=== PATIENT | male | born 1960 | race Caucasian/White ===

== ENCOUNTER 2016-12-19 20:53 | Observation (INO) | payer MEDICARE ==
[~2016-12-19] VITALS: Ht 182.9 cm; Wt 71.0 kg
[2016-12-19 20:58] VITALS: BP 139/71; PULSE 77; RESP 16; TEMP 98.6; O2SAT 99
--- NOTE | 2016-12-19 21:13 | PD ---
Physical Exam Date Seen by Provider: Dec 19, 2016 Time Seen by Provider: 21:11 Data Data Last Documented VS Vital Signs Date Time Temp Pulse Resp B/P (MAP) Pulse Ox O2 Delivery O2 Flow Rate FiO2 12/19/16 20:58 98.6 77 16 139/71 (93) 99 MDM Supervised Visit with MIRA: No Narrative Course 56 YO M with PMH of CAD s/p stenting with complaint of CP. Onset while walking ~1pm. Described as sharp and constant. Endorses accompanying SOB, diaphoreses, N/V. Vitals reviewed. EKG and CP workup ordered. Patient seen in triage, awaiting priority bed placement. Martina Soto Dec 19, 2016 21:13
[2016-12-19] MEDS ORDERED: ASPI81TA81 PO (21:24)
[2016-12-19] MEDS ORDERED: PRED1 PO (21:24)
[2016-12-19] MEDS ORDERED: METO50TA PO (21:24)
[2016-12-19] MEDS ORDERED: HYDR-3533 PO (21:24)
[2016-12-19] MEDS ORDERED: XANA1TAB2 PO (21:24)
[2016-12-19 21:26] VITALS: BP 125/77; PULSE 72; RESP 16; O2SAT 98
[2016-12-19] MEDS ORDERED: ASPIRIN 325 MG TAB PO ONE (21:30)
--- NOTE | 2016-12-19 21:37 | PD ---
HPI Chief Complaint: Chest Pain Time Seen by Provider: 21:28 Travel History International Travel<30 days: No Contact w/Intl Traveler<30days: No Traveled to known affect area: No History of Present Illness HPI 56- year old male presents to the ED complaining of chest pain that started around 1 pm this afternoon. He reports that the pain is under his ribs and dull and has sharp pain in the middle of his chest. He reports associated shortness of breath with the chest pain that is increased with activity and when speaking. He denies any radiation of the pain, but states he has nausea, vomiting, and diarrhea. He is also reporting a tunnel vision which concerns him because he has never had this before. He reports that the pain feels similar to a NH he had in 2013. He reports that he smokes and used cocaine 4 days ago, but denies any alcohol. He denies any recent long car rides or trips. 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 PFSH Past Medical History Anxiety: Yes Cardiac Catheterization: Yes Hypertension: Yes Tetanus Vaccination: Unknown Influenza Vaccination: No Social History Alcohol Use: No Tobacco Use: Yes (05/01 PPD) Substance Use: Yes (COCAINE) Allergies-Medications (Allergen,Severity, Reaction): Coded Allergies: Penicillins (Verified Allergy, Unknown, 12/19/16) Reported Meds & Prescriptions Reported Meds & Active Scripts Active Reported Lortab (Hydrocodone-Acetaminophen) 5-325 Mg Tab 1 Tab PO Q4H PRN Prednisone 1 Mg Tab Unknown Dose PO DAILY Xanax (Alprazolam) 1 Mg Tab 1 Mg PO Q8H PRN Aspir-81 (Aspirin) 81 Mg Tabdr Metoprolol Tartrate 50 Mg Tab 50 Mg PO BID Review of Systems General / Constitutional: No: Fever, Chills, Weight Gain, Weight Loss, Other Eyes: Positive: Visual changes, No: Diploplia, Blurred Vision, Photophobia, Drainage, Redness, Foreign Body Sensation, Pain, Tearing, Blind Spots, Blindness , Other HENT: No: Headaches, Vertigo, Lightheadedness, Sore Throat, Rhinitis, Rhinorrhea, Congestion, Nosebleed, Neck Stiffness, Neck Pain, Masses, Gingival Bleeding, Dental Difficulties, Ear Discharge, Earache, Other Cardiovascular: Positive: Chest Pain or Discomfort, No: Palpitations, Irregular Rhythm, Tachycardia, Diaphoresis, Syncope, Dyspnea on exertion, Varicosities, Edema, Cyanosis, Varicosities, Phlebitis, Claudication, Other Respiratory: Positive: Shortness of Breath, No: Cough, Wheezing, Sneezing, Orthopnea, Hemoptysis, Stridor, Night Sweats, Pleuritic Pain, Other Gastrointestinal: Positive: Nausea, Vomiting, Diarrhea, No: Abdominal Pain, Hematemesis, Hematochezia, Constipation, Changes in Bowel Habits, Indigestion, Dysphagia, Loss of Appetite, Other Genitourinary: No: Urgency, Frequency, Dysuria, Nocturia, Hematuria, Decreased Urinary Output, Oliguria, Hesitancy, Dribbling, Incontinence, Pelvic Pain, Flank Pain, Dyspareunia, Discharge, Dysmenorrhea, Menorrhagia, Metorrhagia, Vaginal Bleeding, Other Musculoskeletal: No: Myalgias, Arthralgias, Limited ROM, Weakness, Cramping, Edema, Pain, Atrophy, Other Skin: No Rash, No Itching, No Dryness, No Lumps, No Hives, No Change in Pigmentation, No Change in nails, No Alopecia, No Lesions, No Breast Lumps, No Breast Tenderness, No Breast Swelling, No Other Neurologic: No: Weakness, Dizziness, Syncope, Focal Abnormalities, Coordination Problem, Tremor, Ataxia, Headache, Change in Mentation, Slurred Speech, Paresthesia, Incontinence, Seizures, Sensory Disturbance, Other Psychiatric: No: Anxiety, Depression, Suicidal Ideations, Disorder of Thought, Mood Disorder, Substance Abuse, Homicidal Ideation, Other Endocrine: No: Heat Intolerance, Cold Intolerance, Polyuria, Polydipsia, Other Hematologic/Lymphatic: No: Easy Bruising, Lymph Node Enlargement, Other Physical Exam Narrative GENERAL: SKIN: Warm and dry. HEAD: Atraumatic. Normocephalic. EYES: Pupils equal and round. No scleral icterus. No injection or drainage. ENT: No nasal bleeding or discharge. Mucous membranes pink and moist. NECK: Trachea midline. No JVD. CARDIOVASCULAR: Regular rate and rhythm. No S3, S4, or murmurs. RESPIRATORY: No accessory muscle use. Clear to auscultation. Breath sounds equal bilaterally. No wheezes, rales, or rhonchi. GASTROINTESTINAL: Abdomen soft, non-tender, nondistended. Hepatic and splenic margins not palpable. MUSCULOSKELETAL: Extremities without clubbing, cyanosis, or edema. No obvious deformities. NEUROLOGICAL: Awake and alert. No obvious cranial nerve deficits. Motor grossly within normal limits. Five out of 5 muscle strength in the arms and legs. Normal speech. PSYCHIATRIC: Appropriate mood and affect; insight and judgment normal. Data Data Last Documented VS Vital Signs Date Time Temp Pulse Resp B/P (MAP) Pulse Ox O2 Delivery O2 Flow Rate FiO2 12/19/16 21:26 72 16 125/77 (93) 98 Room Air 12/19/16 20:58 98.6 Orders Orders Electrocardiogram (12/19/16 21:13) Ckmb (Isoenzyme) Profile (12/19/16 21:13) Complete Blood Count With Diff (12/19/16 21:13) Comprehensive Metabolic Panel (12/19/16 21:13) Magnesium (Mg) (12/19/16 21:13) Prothrombin Time / Inr (Pt) (12/19/16 21:13) Act Partial Throm Time (Ptt) (12/19/16 21:13) Troponin I (12/19/16 21:13) Chest, Single Ap (12/19/16 21:13) Lipase (12/19/16 21:27) Ecg Monitoring (12/19/16 21:29) Bilateral Bp Monitoring (12/19/16 21:29) Iv Access Insert/Monitor (12/19/16 21:29) Aspirin (Aspirin) (12/19/16 21:30) D-Dimer (12/19/16 21:40) Albuterol Neb (Albuterol Neb) (12/19/16 21:45) Ct Brain W/O Iv Contrast(Rout) (12/19/16 ) CKMB (12/19/16 21:08) CKMB% (12/19/16 21:08) Acetamin-Hydrocod 325-5 Mg ([place] 5-325 (12/19/16 22:15) Labs Laboratory Tests Test 12/19/16 21:08 White Blood Count 6.5 TH/MM3 Red Blood Count 3.97 MIL/MM3 Hemoglobin 12.3 GM/DL Hematocrit 36.7 % Mean Corpuscular Volume 92.2 FL Mean Corpuscular Hemoglobin 30.9 PG Mean Corpuscular Hemoglobin Concent 33.5 % Red Cell Distribution Width 14.5 % Platelet Count 199 TH/MM3 Mean Platelet Volume 9.0 FL Neutrophils (%) (Auto) 63.7 % Lymphocytes (%) (Auto) 25.5 % Monocytes (%) (Auto) 6.8 % Eosinophils (%) (Auto) 2.6 % Basophils (%) (Auto) 1.4 % Neutrophils # (Auto) 4.1 TH/MM3 Lymphocytes # (Auto) 1.7 TH/MM3 Monocytes # (Auto) 0.4 TH/MM3 Eosinophils # (Auto) 0.2 TH/MM3 Basophils # (Auto) 0.1 TH/MM3 CBC Comment DIFF FINAL Differential Comment Prothrombin Time 11.0 SEC Prothromb Time International Ratio 1.0 RATIO Activated Partial Thromboplast Time 30.4 SEC Blood Urea Nitrogen 11 MG/DL Creatinine 0.84 MG/DL Random Glucose 103 MG/DL Total Protein 7.0 GM/DL Albumin 3.6 GM/DL Calcium Level 8.9 MG/DL Magnesium Level 1.9 MG/DL Alkaline Phosphatase 69 U/L Aspartate Amino Transf (AST/SGOT) 22 U/L Alanine Aminotransferase (ALT/SGPT) 30 U/L Total Bilirubin 0.4 MG/DL Sodium Level 140 MEQ/L Potassium Level 3.4 MEQ/L Chloride Level 108 MEQ/L Carbon Dioxide Level 24.5 MEQ/L Anion Gap 8 MEQ/L Estimat Glomerular Filtration Rate 95 ML/MIN Total Creatine Kinase 218 U/L Creatine Kinase MB 5.0 NG/ML Troponin I LESS THAN 0.02 NG/ML Lipase 259 U/L MDM Medical Decision Making Medical Screen Exam Complete: Yes Emergency Medical Condition: Yes Medical Record Reviewed: Yes Interpretation(s) CBC & BMP Diagram 12/19/16 21:08 Total Protein 7.0, Albumin 3.6, Calcium Level 8.9, Magnesium Level 1.9, Alkaline Phosphatase 69, Aspartate Amino Transf (AST/SGOT) 22, Alanine Aminotransferase (ALT/SGPT) 30, Total Bilirubin 0.4 EKG shows sinus rhythm with no sign of acute ischemia or arrhythmia read by me and attending. troponin and CKMB negative CXR negative Coags WNL Differential Diagnosis NH versus GERD versus PE versus CHF versus Endocarditis Narrative Course 56-year-old male that presents to the ED for evaluation of chest pain. Patient was properly examined and was found to have signs and symptoms consistent appears to be chest pain. Unclear etiology of this time. Patient had a workup yesterday at a different hospital and was discharged with Lortab, tell her and prednisone. Per patient he is not taking his medications because he has no money until Sunday. He comes here to get a second opinion. He does have a history of ACS in per patient had an NH in 2013. Because of this labs and imaging will be ordered. Patient was given aspirin. Case will be signed out to my attending pending dispo pending labs. Anthony Mc Dec 19, 2016 21:37
[2016-12-19 21:38] LABS: AUTOMATED NEUTROPHIL # 4.1 TH/MM3 (1.8-7.7); BASOPHIL # 0.1 TH/MM3 (0-0.2); BASOPHIL % 1.4 % (0.0-2.0); EOSINOPHIL # 0.2 TH/MM3 (0-0.4); EOSINOPHIL % 2.6 % (0.0-4.0); HEMATOCRIT 36.7 % (39.0-51.0); HEMO FLAGS DIFF FINAL; LYMPH % 25.5 % (9.0-44.0); LYMPHOCYTE # 1.7 TH/MM3 (1.0-4.8); MEAN CELL VOLUME 92.2 FL (80.0-100.0); MEAN CORPUSCULAR HEMOGLOBIN 30.9 PG (27.0-34.0); MEAN CORPUSCULAR HGB CONC 33.5 % (32.0-36.0); MONO % 6.8 % (0.0-8.0); NEUT % 63.7 % (16.0-70.0); PLATELET COUNT 199 TH/MM3 (150-450); RED BLOOD COUNT 3.97 MIL/MM3 (4.50-5.90); RED CELL DISTRIBUTION WIDTH 14.5 % (11.6-17.2); WHITE BLOOD COUNT 6.5 TH/MM3 (4.0-11.0)
[2016-12-19] MEDS ORDERED: RESP: ALBUTEROL 2.5 MG/3 ML NEB (SCH) INH ONE (21:45)
[2016-12-19 21:57] LABS: ANION GAP 8 MEQ/L (5-15); AST (GOT) 22 U/L (15-37); BICARBONATE 24.5 MEQ/L (21.0-32.0); BLOOD UREA NITROGEN 11 MG/DL (7-18); CHLORIDE 108 MEQ/L (98-107); GLOMERULAR FILTRATION RATE 95 ML/MIN (>89); MAGNESIUM 1.9 MG/DL (1.5-2.5); POTASSIUM 3.4 MEQ/L (3.5-5.1); SODIUM (NA) 140 MEQ/L (136-145)
[2016-12-19 21:58] LABS: ALT (GPT) 30 U/L (12-78)
[2016-12-19 22:02] LABS: ALKALINE PHOSPHATASE 69 U/L (45-117); CREATINE KINASE 218 U/L (39-308); TOTAL BILIRUBIN ADULT 0.4 MG/DL (0.2-1.0)
[2016-12-19 22:04] LABS: APTT (PATIENT) 30.4 SEC (24.3-30.1)
--- NOTE | 2016-12-19 22:11 | RADRPT ---
EXAM DATE/TIME: 12/19/2016 21:49 [facility] COMPARISON: No previous studies available for comparison. INDICATIONS : Chest pain. MEDICAL HISTORY : Hypertension. SURGICAL HISTORY : Cardiac catheterization. ENCOUNTER: Initial ACUITY: 1 day PAIN SCORE: 10/10 LOCATION: Bilateral chest FINDINGS: Portable AP view of the chest demonstrates a normal-sized cardiac silhouette. No effusion, consolidat ion, or pneumothorax is visualized. The bones and soft tissues demonstrate no acute abnormality. Ther e is mild atelectasis at the lung bases. CONCLUSION: No acute cardiopulmonary abnormality is identified. Wang Feliciano MD on December 19, 2016 at 22:09 Board Certified Radiologist. This report was verified electronically.
[2016-12-19] MEDS ORDERED: ACETAMINOPHEN/HYDROcodone 325 MG/5 MG TAB PO ONE (22:15)
--- NOTE | 2016-12-19 22:50 | RADRPT ---
EXAM DATE/TIME: 12/19/2016 22:09 [facility] COMPARISON: No previous studies available for comparison. INDICATIONS : Cephalgia. RADIATION DOSE: 32.16 CTDIvol (mGy) MEDICAL HISTORY : Hypertension. SURGICAL HISTORY : None. ENCOUNTER: Initial ACUITY: 1 day PAIN SCALE: 8/10 LOCATION: cranial TECHNIQUE: Multiple contiguous axial images were obtained of the head. Using automated exposure control and adj ustment of the mA and/or kV according to patient size, radiation dose was kept as low as reasonably a chievable to obtain optimal diagnostic quality images. DICOM format image data is available electro nically for review and comparison. FINDINGS: CEREBRUM: The ventricles are normal for age. No evidence of midline shift, mass lesion, hemorrhage or acute in farction. No extra-axial fluid collections are seen. POSTERIOR FOSSA: The cerebellum and brainstem are intact. The 4th ventricle is midline. The cerebellopontine angle i s unremarkable. EXTRACRANIAL: The visualized portion of the orbits is intact. SKULL: The calvaria is intact. No evidence of skull fracture. CONCLUSION: No acute intracranial abnormality is identified. Wang Feliciano MD on December 19, 2016 at 22:45 Board Certified Radiologist. This report was verified electronically.
--- NOTE | 2016-12-19 23:22 | PD ---
Physical Exam Date Seen by Provider: Dec 19, 2016 Data Data Last Documented VS Vital Signs Date Time Temp Pulse Resp B/P (MAP) Pulse Ox O2 Delivery O2 Flow Rate FiO2 12/19/16 21:26 72 16 125/77 (93) 98 Room Air 12/19/16 20:58 98.6 Orders Orders Electrocardiogram (12/19/16 21:13) Ckmb (Isoenzyme) Profile (12/19/16 21:13) Complete Blood Count With Diff (12/19/16 21:13) Comprehensive Metabolic Panel (12/19/16 21:13) Magnesium (Mg) (12/19/16 21:13) Prothrombin Time / Inr (Pt) (12/19/16 21:13) Act Partial Throm Time (Ptt) (12/19/16 21:13) Troponin I (12/19/16 21:13) Chest, Single Ap (12/19/16 21:13) Lipase (12/19/16 21:27) Ecg Monitoring (12/19/16 21:29) Bilateral Bp Monitoring (12/19/16 21:29) Iv Access Insert/Monitor (12/19/16 21:29) Aspirin (Aspirin) (12/19/16 21:30) D-Dimer (12/19/16 21:40) Albuterol Neb (Albuterol Neb) (12/19/16 21:45) Ct Brain W/O Iv Contrast(Rout) (12/19/16 ) CKMB (12/19/16 21:08) CKMB% (12/19/16 21:08) Acetamin-Hydrocod 325-5 Mg (Model 5-325 (12/19/16 22:15) Drug Screen, Random Urine (12/19/16 22:56) Labs Laboratory Tests Test 12/19/16 21:08 White Blood Count 6.5 TH/MM3 Red Blood Count 3.97 MIL/MM3 Hemoglobin 12.3 GM/DL Hematocrit 36.7 % Mean Corpuscular Volume 92.2 FL Mean Corpuscular Hemoglobin 30.9 PG Mean Corpuscular Hemoglobin Concent 33.5 % Red Cell Distribution Width 14.5 % Platelet Count 199 TH/MM3 Mean Platelet Volume 9.0 FL Neutrophils (%) (Auto) 63.7 % Lymphocytes (%) (Auto) 25.5 % Monocytes (%) (Auto) 6.8 % Eosinophils (%) (Auto) 2.6 % Basophils (%) (Auto) 1.4 % Neutrophils # (Auto) 4.1 TH/MM3 Lymphocytes # (Auto) 1.7 TH/MM3 Monocytes # (Auto) 0.4 TH/MM3 Eosinophils # (Auto) 0.2 TH/MM3 Basophils # (Auto) 0.1 TH/MM3 CBC Comment DIFF FINAL Differential Comment Prothrombin Time 11.0 SEC Prothromb Time International Ratio 1.0 RATIO Activated Partial Thromboplast Time 30.4 SEC D-Dimer Quantitative (PE/DVT) 0.24 MG/L FEU Blood Urea Nitrogen 11 MG/DL Creatinine 0.84 MG/DL Random Glucose 103 MG/DL Total Protein 7.0 GM/DL Albumin 3.6 GM/DL Calcium Level 8.9 MG/DL Magnesium Level 1.9 MG/DL Alkaline Phosphatase 69 U/L Aspartate Amino Transf (AST/SGOT) 22 U/L Alanine Aminotransferase (ALT/SGPT) 30 U/L Total Bilirubin 0.4 MG/DL Sodium Level 140 MEQ/L Potassium Level 3.4 MEQ/L Chloride Level 108 MEQ/L Carbon Dioxide Level 24.5 MEQ/L Anion Gap 8 MEQ/L Estimat Glomerular Filtration Rate 95 ML/MIN Total Creatine Kinase 218 U/L Creatine Kinase MB 5.0 NG/ML Troponin I LESS THAN 0.02 NG/ML Lipase 259 U/L [facility] Medical Record Reviewed: Yes Supervised Visit with MIRA: Yes Interpretation(s) Vital Signs Date Time Temp Pulse Resp B/P (MAP) Pulse Ox O2 Delivery O2 Flow Rate FiO2 12/19/16 21:26 72 16 125/77 (93) 98 Room Air 12/19/16 21:24 76 12/19/16 20:58 98.6 77 16 139/71 (93) 99 Laboratory Tests Test 12/19/16 21:08 White Blood Count 6.5 TH/MM3 (4.0-11.0) Red Blood Count 3.97 MIL/MM3 (4.50-5.90) Hemoglobin 12.3 GM/DL (13.0-17.0) Hematocrit 36.7 % (39.0-51.0) Mean Corpuscular Volume 92.2 FL (80.0-100.0) Mean Corpuscular Hemoglobin 30.9 PG (27.0-34.0) Mean Corpuscular Hemoglobin Concent 33.5 % (32.0-36.0) Red Cell Distribution Width 14.5 % (11.6-17.2) Platelet Count 199 TH/MM3 (150-450) Mean Platelet Volume 9.0 FL (7.0-11.0) Neutrophils (%) (Auto) 63.7 % (16.0-70.0) Lymphocytes (%) (Auto) 25.5 % (9.0-44.0) Monocytes (%) (Auto) 6.8 % (0.0-8.0) Eosinophils (%) (Auto) 2.6 % (0.0-4.0) Basophils (%) (Auto) 1.4 % (0.0-2.0) Neutrophils # (Auto) 4.1 TH/MM3 (1.8-7.7) Lymphocytes # (Auto) 1.7 TH/MM3 (1.0-4.8) Monocytes # (Auto) 0.4 TH/MM3 (0-0.9) Eosinophils # (Auto) 0.2 TH/MM3 (0-0.4) Basophils # (Auto) 0.1 TH/MM3 (0-0.2) CBC Comment DIFF FINAL Differential Comment Prothrombin Time 11.0 SEC (9.8-11.6) Prothromb Time International Ratio 1.0 RATIO Activated Partial Thromboplast Time 30.4 SEC (24.3-30.1) D-Dimer Quantitative (PE/DVT) 0.24 MG/L FEU (0.00-0.50) Blood Urea Nitrogen 11 MG/DL (7-18) Creatinine 0.84 MG/DL (0.60-1.30) Random Glucose 103 MG/DL (74-106) Total Protein 7.0 GM/DL (6.4-8.2) Albumin 3.6 GM/DL (3.4-5.0) Calcium Level 8.9 MG/DL (8.5-10.1) Magnesium Level 1.9 MG/DL (1.5-2.5) Alkaline Phosphatase 69 U/L (45-117) Aspartate Amino Transf (AST/SGOT) 22 U/L (15-37) Alanine Aminotransferase (ALT/SGPT) 30 U/L (12-78) Total Bilirubin 0.4 MG/DL (0.2-1.0) Sodium Level 140 MEQ/L (136-145) Potassium Level 3.4 MEQ/L (3.5-5.1) Chloride Level 108 MEQ/L (98-107) Carbon Dioxide Level 24.5 MEQ/L (21.0-32.0) Anion Gap 8 MEQ/L (5-15) Estimat Glomerular Filtration Rate 95 ML/MIN (>89) Total Creatine Kinase 218 U/L (39-308) Creatine Kinase MB 5.0 NG/ML (0.5-3.6) Troponin I LESS THAN 0.02 NG/ML Lipase 259 U/L (73-393) Differential Diagnosis drug abuse, acs, arrhythmia, electrolyte abnormality Narrative Course I, Dr. Patel, have reviewed the advance practice practitioner's documentation and am in agreement, met with the patient face to face, made the diagnosis, and the medical decision making was done by me. *My assessment and Findings: Patient is a 56 year old male who presents to the ER wtih c/o of chest pain which started around 1pm this afternoon. Patient's pain is under his ribs and is so she was sharp pain to the middle chest admission to shortness of breath. Patient endorses that he does use drugs, he used cocaine 4 days ago. Patient reports that he has had history of hypertension and OK in the past. CBC & BMP Diagram 12/19/16 21:08 Total Protein 7.0, Albumin 3.6, Calcium Level 8.9, Magnesium Level 1.9, Alkaline Phosphatase 69, Aspartate Amino Transf (AST/SGOT) 22, Alanine Aminotransferase (ALT/SGPT) 30, Total Bilirubin 0.4 Troponin less than 0.02, CK-MB 5.0 D dimer 0.24 chest xray: no acute cardiopulmonary abnormality identified Plan to obs in the CDU. Diagnosis Primary Impression: Chest pain Additional Impression: Cocaine abuse Admitting Information Admitting Physician Requests: Observation Rosamaria Patel DO Dec 19, 2016 23:22
[2016-12-20] VITALS (8 sets, daily range): BP systolic 112–132; BP diastolic 59–76; PULSE 47–84; RESP 16–18; TEMP 97.9–98.1; O2SAT 96–98
[2016-12-20 01:49] LABS: CREATINE KINASE 190 U/L (39-308)
[2016-12-20 02:02] LABS: CKMB 3.7 NG/ML (0.5-3.6)
[2016-12-20 04:35] LABS: CREATINE KINASE 162 U/L (39-308)
[2016-12-20 04:47] LABS: CKMB 3.4 NG/ML (0.5-3.6)
[2016-12-20] MEDS ORDERED: LORazepam 1 MG TAB PO ONE (08:15)
--- NOTE | 2016-12-20 08:29 | HHI.HP ---
HPI Primary Care Physician No Primary Care Physician Chief Complaint Chest pain History of Present Illness 56-year-old male with reported history of coronary artery disease presents to emergency room for further evaluation of chest pain. Onset 1 PM yesterday. Location substernal. Characterized as a sharp pain. No radiation of pain. Associated symptoms included shortness of breath. No nausea, vomiting, or diaphoresis. Duration constant. Does not hurt to take a deep breath. No particular movement or position makes pain better or worse. Precipitating factors unknown although states he out of his anxiety medication and is currently having a panic attack. No known precipitating factors. Difficult to obtain history of present illness. Exhibiting drug seeking behaviors, with conversation always returning to need for lorazepam. Angry during interview. Cursing and yelling. At one point during interview, stated "if I don't get some kind of pain relief I will go out an get street drugs." Reports normal chemical stress test one month in [place]. Endorses using cocaine 4 days ago. Review of Systems General: No fatigue,weakness, fever, chills, recent illness, or change in appetite. Reports recently returning to [facility]. HEENT: No FIORE CV: As stated above. Constant chest pain for over 24 hours. RESP: No SOB, cough, or wheeze. GI: No nausea, vomiting, bowel changes. 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 Current situational stress. No depression or suicidal ideation. SKIN: No rashes, no concerning lesions Past Family Social History Allergies: Coded Allergies: Penicillins (Verified Allergy, Unknown, 12/19/16) Past Medical History CAD, chronic pain, anxiety, hypertension, substance abuse Reported Medications Active Reported Lortab (Hydrocodone-Acetaminophen) 5-325 Mg Tab 1 Tab PO Q4H PRN Prednisone 1 Mg Tab Unknown Dose PO DAILY Xanax (Alprazolam) 1 Mg Tab 1 Mg PO Q8H PRN Aspir-81 (Aspirin) 81 Mg Tabdr Metoprolol Tartrate 50 Mg Tab 50 Mg PO BID Active Ordered Medications None Social History Known CAD with reports x1 cardiac stent. Known hypertension. No known diabetes. Is on appropriate cholesterol management with known CAD. Current smoke 1/2 pack/daily. Denies any alcohol use. Cocaine use 4 days ago. Disabled -states he does not use [place] system for healthcare. Past Cardiac Testing Chemical stress test in [place] one month ago reported to be normal Reports 1 cardiac stent 2013 in [place]. Physical Exam Vital Signs Vital Signs Date Time Temp Pulse Resp B/P (MAP) Pulse Ox O2 Delivery O2 Flow Rate FiO2 12/20/16 08:04 21 12/20/16 07:13 98.0 59 18 118/76 (90) 97 12/20/16 05:24 97.9 56 16 113/59 (77) 96 12/20/16 04:01 60 12/20/16 02:35 48 12/20/16 02:26 98.0 60 16 112/67 (82) 98 12/20/16 02:14 12/20/16 01:24 98 21 12/20/16 00:45 84 16 132/75 (94) 98 Room Air 12/19/16 21:26 72 16 125/77 (93) 98 Room Air 12/19/16 21:24 76 12/19/16 20:58 98.6 77 16 139/71 (93) 99 Physical Exam GENERAL: Alert WN, WD, NAD, hostile male HEAD: NC, AT CV: RRR, without murmur, rub, gallop, no JVD, S1-S2 no S3-S4. Chest wall reproducible tenderness with palpation. RESP: Clear lungs throughout bilateral, no crackles, wheeze, rhonchi, symmetrical chest rise, nonlabored, able to speak in full sentences ABD: Soft, NT, ND, no masses EXT: Pulses +24, no dependent edema MS: Normal tone 4 extremities, nontender, no obvious deformities, full range of motion NEURO: CN II through CN XII grossly intact, motor strength 5/5, gait WNL PSYCH: A+O 3, hostile, yelling, and argumentative. SKIN: Normal turgor, normal texture, multiple tattoos Laboratory Laboratory Tests Test 12/19/16 21:08 12/20/16 00:55 12/20/16 03:45 White Blood Count 6.5 Red Blood Count 3.97 Hemoglobin 12.3 Hematocrit 36.7 Mean Corpuscular Volume 92.2 Mean Corpuscular Hemoglobin 30.9 Mean Corpuscular Hemoglobin Concent 33.5 Red Cell Distribution Width 14.5 Platelet Count 199 Mean Platelet Volume 9.0 Neutrophils (%) (Auto) 63.7 Lymphocytes (%) (Auto) 25.5 Monocytes (%) (Auto) 6.8 Eosinophils (%) (Auto) 2.6 Basophils (%) (Auto) 1.4 Neutrophils # (Auto) 4.1 Lymphocytes # (Auto) 1.7 Monocytes # (Auto) 0.4 Eosinophils # (Auto) 0.2 Basophils # (Auto) 0.1 CBC Comment DIFF FINAL Differential Comment Prothrombin Time 11.0 Prothromb Time International Ratio 1.0 Activated Partial Thromboplast Time 30.4 D-Dimer Quantitative (PE/DVT) 0.24 Blood Urea Nitrogen 11 Creatinine 0.84 Random Glucose 103 Total Protein 7.0 Albumin 3.6 Calcium Level 8.9 Magnesium Level 1.9 Alkaline Phosphatase 69 Aspartate Amino Transf (AST/SGOT) 22 Alanine Aminotransferase (ALT/SGPT) 30 Total Bilirubin 0.4 Sodium Level 140 Potassium Level 3.4 Chloride Level 108 Carbon Dioxide Level 24.5 Anion Gap 8 Estimat Glomerular Filtration Rate 95 Total Creatine Kinase 218 190 162 Creatine Kinase MB 5.0 3.7 3.4 Troponin I LESS THAN 0.02 LESS THAN 0.02 LESS THAN 0.02 Lipase 259 Result Diagram: 12/19/16210712/19/162107 Imaging Last Impressions Chest X-Ray 12/19/162112 Signed Impressions: Service Date/Time: Monday, December 19, 2016 21:49 - CONCLUSION: No acute cardiopulmonary abnormality is identified. Wang Feliciano MD Head CT 12/19/16 0000 Signed Impressions: Service Date/Time: Monday, December 19, 2016 22:09 - CONCLUSION: No acute intracranial abnormality is identified. Wang Feliciano MD Course EKG Normal sinus bradycardia, normal axis, no ST or T-segment change Caprini VTE Risk Assessment Caprini VTE Risk Assessment: No/Low Risk (score <= 1) Caprini Risk Assessment Model Point Value = 1 Point Value = 2 Point Value = 3 Point Value = 5 Age 41-60 Minor surgery BMI > 25 kg/m2 Swollen legs Varicose veins or History of unexplained or recurrent spontaneous Oral contraceptives or hormone replacement Sepsis (< 1 month) Serious lung disease, including pneumonia (< 1 month) Abnormal pulmonary function Acute myocardial infarction Congestive heart failure (< 1 month) History of inflammatory bowel disease Medical patient at bed rest Age 61-74 Arthroscopic surgery Major open surgery (> 45 min) Laparoscopic surgery (> 45 min) Malignancy Confined to bed (> 72 hours) Immobilizing plaster cast Central venous access Age >= 75 History of VTE Family history of VTE Factor V Leiden Prothrombin [id number] Lupus anticoagulant Anticardiolipin antibodies Elevated serum homocysteine Heparin-induced thrombocytopenia Other congenital or acquired thrombophilia Stroke (< 1 month) Elective arthroplasty Hip, pelvis, or leg fracture Acute spinal cord injury (< 1 month) Prophylaxis Regimen Total Risk Factor Score Risk Level Prophylaxis Regimen 0-1 Low Early ambulation 2 Moderate Order ONE of the following: *Sequential Compression Device (SCD) *Heparin 5000 units SQ BID 3-4 Higher Order ONE of the following medications: *Heparin 5000 units SQ TID *Enoxaparin/Lovenox 40 mg SQ daily (WT < 150 kg, CrCl > 30 mL/min) *Enoxaparin/Lovenox 30 mg SQ daily (WT < 150 kg, CrCl > 10-29 mL/min) *Enoxaparin/Lovenox 30 mg SQ BID (WT < 150 kg, CrCl > 30 mL/min) AND/OR *Sequential Compression Device (SCD) 5 or more Highest Order ONE of the following medications: *Heparin 5000 units SQ TID (Preferred with Epidurals) *Enoxaparin/Lovenox 40 mg SQ daily (WT < 150 kg, CrCl > 30 mL/min) *Enoxaparin/Lovenox 30 mg SQ daily (WT < 150 kg, CrCl > 10-29 mL/min) *Enoxaparin/Lovenox 30 mg SQ BID (WT < 150 kg, CrCl > 30 mL/min) AND *Sequential Compression Device (SCD) Assessment and Plan Assessment and Plan #1 Atypical chest pain- Admitted to chest pain center. Seen and evaluated by Dr. Jyoti Carreno. Ruled out with 3 sets of EKGs and cardiac enzymes. Reporting intractable chest pain with recent normal stress test one month ago. Consult to on-call surgical coder for further recommendation. #2 Anxiety-Lorazepam 1 mg by mouth 1 dose #3 Tobacco use-strongly encouraged and stressed the importance of tobacco sensation. Instructed to quit smoking. #4 Cocaine use-informed of risk of cocaine use including risk of [place] and even . Strongly encouraged him to quit using cocaine. #5 History of CAD-continue beta dimas and aspirin, reestablish with a surgical coder in area, encouraged establishing with a medical system #6 Chronic pain-pain medication provided in ER, stating he needs Suboxone although requesting pain medication prescription, informed him we will not provide him with his chronic pain medications. Continue with previous prescription, reestablish with pain clinic and/or local PCP, 12:[address] Huddleston. No further cardiac testing required. Diet ordered. Will discharge this afternoon. Appreciate cardiology consult. Brooke Oakes Dec 20, 2016 08:29
[2016-12-20] MEDS ORDERED: ACETAMINOPHEN 500 MG CPLT PO PRN (08:30)
[2016-12-20] MEDS ORDERED: SODIUM CHLORIDE 0.9% FLUSH 10 ML FLUSH IV FLUSH PRN (08:30)
[2016-12-20] MEDS ORDERED: ONDANSETRON HCL 4 MG/2 ML VIAL IV PRN (08:30)
[2016-12-20] MEDS ORDERED: NITROGLYCERIN 0.4 MG SL 25 TABS/BTL SL PRN (08:30)
[2016-12-20] MEDS ORDERED: SODIUM CHLORIDE 0.9% FLUSH 10 ML FLUSH IV FLUSH SCH (09:00)
[2016-12-20] MEDS ORDERED: ASPIRIN 325 MG TAB PO SCH (09:00)
[2016-12-20] MEDS ORDERED: METOPROLOL TARTRATE 50 MG TAB PO SCH (09:00)
--- NOTE | 2016-12-20 12:18 | MB ---
cc: LISA LEMUS M.D. DATE OF CONSULTATION 12/20/2016 REASON FOR CONSULTATION Chest pain. History of coronary artery disease. HISTORY OF PRESENT ILLNESS The patient is a 56-year-old white male with a history of coronary artery disease apparently status post stenting in 2013 in [place], history of tobacco and cocaine abuse, who presented to the hospital with chest pain. At about 01:00 p.m. yesterday he began experiencing a "sharp" and "dull" substernal chest pain associated with slight nausea. The chest pain was constant in nature up until this morning when it relieved for about 1/2 hour. After becoming upset, the chest pain recurred and has been persistent in a constant fashion for the last 3 or 4 hours. He denies diaphoresis, pleurisy, palpitations, lightheadedness, paroxysmal nocturnal dyspnea, pedal edema. Yesterday while walking in the heat he believes he lost consciousness for a brief time. When he regained consciousness, he was not disoriented. He denies any other episodes of syncope. The patient also reports a nuclear stress test done in [facility] about a month ago which was normal. In the last couple weeks he has had an overall nonproductive cough without hemoptysis. PAST MEDICAL HISTORY As above. No other details currently available. CARDIAC MEDICATIONS AT HOME 1. Aspirin 81 mg daily. 2. Metoprolol tartrate 50 mg b.i.d. ALLERGIES PENICILLIN. FAMILY HISTORY There is no significant family history of early myocardial infarction. SOCIAL HISTORY The patient smokes about half a pack of cigarettes per day. He last used cocaine about 4 days ago. He denies alcohol abuse. REVIEW OF SYSTEMS As in the History of Present Illness, otherwise negative or noncontributory. He also currently denies headache, visual changes, abdominal pain, melena, bright red blood per rectum. PHYSICAL EXAMINATION VITAL SIGNS: His is blood pressure 112/67 with a pulse of 47, respirations 16. IN GENERAL: He is a well-developed, well-nourished white male in no acute distress. HEENT/NECK EXAMINATION: Jugular venous pressure is normal. Carotid pulses are 2+ bilaterally and without bruits. LUNGS: Examination of the chest reveals diminished breath sounds diffusely. CARDIAC: On cardiac examination he has a regular rhythm and rate without S3, S4, murmur or rub. CHEST: There is chest wall tenderness on exam reproducing his pains. ABDOMEN: On abdominal examination he has a soft, nontender abdomen. Bowel sounds are present. There is no definite hepatosplenomegaly. EXTREMITIES: Examination of extremities reveals no clubbing, cyanosis or edema. EKGs Normal sinus rhythm, normal EKG. LABORATORY DATA WBC 6.5, hemoglobin 12.3, platelets 199, potassium 3.4. CK 218 with CK-MB of 5.0, troponin less than 0.02. Potassium 3.4, BUN 11, creatinine 0.84. CHEST X-RAY No acute disease. IMPRESSION Noncardiac chest pain in this 56-year-old white male with a history of coronary artery disease, reportedly status post stenting in 2013 in [place], history of cocaine and tobacco abuse. At this time there is no compelling evidence that the patient's chest pains are due to acute coronary syndrome. Despite chest pain most of the last 24 hours, troponin levels are negative for myocardial infarction. CK-MB percentages are negative for myocardial infarction. EKGs are normal. He also has chest wall tenderness on exam which reproduces his chest pains. Lastly, he reportedly had a nuclear stress test a month ago in [place] which was normal. Clinical suspicion for pulmonary embolism or aortic dissection is extremely low. There is no evidence he has coronary vasospasm from cocaine abuse. RECOMMENDATIONS 1. No additional cardiac workup at this time. 2. He is cleared for discharge from a cardiac standpoint. MD BLANCO Locke/MANOJ /11:50 AM /12:04 PM EMILY
--- NOTE | 2016-12-20 12:19 | HHI.DCPOC ---
Discharge Care Plan Diagnosis: (1) Atypical chest pain (2) Cocaine abuse Goals to Promote Your Health * To prevent worsening of your condition and complications * To maintain your health at the optimal level Directions to Meet Your Goals Take your medications as prescribed Follow your dietary instruction Follow activity as directed Keep your appointments as scheduled Take your immunizations and boosters as scheduled If your symptoms worsen call your PCP, if no PCP go to Urgent Care Center or Emergency Room Smoking is Dangerous to Your Health. Avoid second hand smoke Call the 24-hour hour crisis hotline for domestic abuse at Brooke Oakes Dec 20, 2016 12:19
--- NOTE | 2016-12-20 17:48 | EKG ---
Date Performed: 12/20/2016 Time Performed: 03:40:58 PTAGE: 56 years EKG: SINUS BRADYCARDIA BORDERLINE ECG Since PREVIOUS TRACING , no significant change noted PREVIOUS TRACIN12/20/2016 01.10 DOCTOR: Jyoti Carreno Interpretating Date/Time 12/20/2016 17:46:19
--- NOTE | 2016-12-20 17:49 | EKG ---
Date Performed: 12/20/2016 Time Performed: 01:10:31 PTAGE: 56 years EKG: SINUS BRADYCARDIA WITH MARKED SINUS ARRHYTHMIA BORDERLINE ECG Since previous tracing, no si gnificant change noted NO PREVIOUS TRACING DOCTOR: Jyoti Carreno Interpretating Date/Time 12/20/2016 17:47:40
--- NOTE | 2016-12-20 17:50 | EKG ---
Date Performed: 12/19/2016 Time Performed: 21:01:22 PTAGE: 56 years EKG: Sinus rhythm NORMAL ECG NO PREVIOUS TRACING DOCTOR: Jyoti Carreno Interpretating Date/Time 12/20/2016 17:48:16
== END 2016-12-20 14:02 | disposition home or self-care (01) ==
LOC: NEPC 20:53 → NEDA 23:25 → NEPFCDU 12-20 02:19
PROVIDERS: ADMIT Internal Medicine Interventional Cardiology; ATTEND Internal Medicine Interventional Cardiology
DX: R07.89 Other chest pain (principal); I25.10 Atherosclerotic heart disease of native coronary artery without angina pectoris; I10 Essential (primary) hypertension; F41.9 Anxiety disorder, unspecified; F14.10 Cocaine abuse, uncomplicated; F17.210 Nicotine dependence, cigarettes, uncomplicated; Z95.5 Presence of coronary angioplasty implant and graft
CPT/HCPCS: 70450; 71010; 80053; 82550; 82552; 83690; 83735; 84484; 85025; 85379; 85610; 85730; 93005; 94664; 99285; G0378; J7613

== ENCOUNTER 2016-12-26 17:11 | Emergency (ER) | payer MEDICARE ==
[~2016-12-26] VITALS: Ht 180.3 cm; Wt 75.0 kg
[~2016-12-26 17:11] MED LIST: ASPI81TA81 PO; HYDR-3533 PO; METO50TA PO; PRED1 PO; XANA1TAB2 PO
[2016-12-26 18:29] VITALS: BP 131/60; PULSE 74; RESP 21; O2SAT 100
[2016-12-26 18:37] LABS: AUTOMATED NEUTROPHIL # 5.2 TH/MM3 (1.8-7.7); BASOPHIL % 0.6 % (0.0-2.0); EOSINOPHIL # 0.1 TH/MM3 (0-0.4); EOSINOPHIL % 1.5 % (0.0-4.0); HEMATOCRIT 35.9 % (39.0-51.0); HEMO FLAGS DIFF FINAL; LYMPH % 16.7 % (9.0-44.0); LYMPHOCYTE # 1.2 TH/MM3 (1.0-4.8); MEAN CORPUSCULAR HEMOGLOBIN 30.3 PG (27.0-34.0); MEAN CORPUSCULAR HGB CONC 33.3 % (32.0-36.0); MONO % 7.6 % (0.0-8.0); NEUT % 73.6 % (16.0-70.0); PLATELET COUNT 199 TH/MM3 (150-450); RED BLOOD COUNT 3.95 MIL/MM3 (4.50-5.90); RED CELL DISTRIBUTION WIDTH 14.9 % (11.6-17.2)
[2016-12-26 19:01] LABS: ALKALINE PHOSPHATASE 65 U/L (45-117); ALT (GPT) 46 U/L (12-78); ANION GAP 7 MEQ/L (5-15); AST (GOT) 63 U/L (15-37); BICARBONATE 26.8 MEQ/L (21.0-32.0); BLOOD UREA NITROGEN 9 MG/DL (7-18); CHLORIDE 102 MEQ/L (98-107); GLOMERULAR FILTRATION RATE 101 ML/MIN (>89); SODIUM (NA) 136 MEQ/L (136-145); TOTAL BILIRUBIN ADULT 0.7 MG/DL (0.2-1.0)
--- NOTE | 2016-12-26 19:06 | PD ---
HPI Chief Complaint: Psychiatric Symptoms Time Seen by Provider: 19:05 Travel History International Travel<30 days: No Contact w/Intl Traveler<30days: No Traveled to known affect area: No History of Present Illness HPI 56 YO M presents to the ED for evaluation of chest pain. He states "I don't feel good." He requests voluntary psychiatric evaluation. The patient is sleeping upon my evaluation. He wakes easily to voice. He becomes very agitated and is uncooperative with the history gathering or exam. PFSH Past Medical History Anxiety: Yes Heart Rhythm Problems: No Cardiac Catheterization: No Cardiovascular Problems: Yes High Cholesterol: No Congestive Heart Failure: No Diabetes: No Diminished Hearing: No Hypertension: Yes Influenza Vaccination: No Past Surgical History Coronary Artery Bypass Graft: No Social History Alcohol Use: No Tobacco Use: Yes (1-05/01 PPD) Substance Use: Yes (COCAINE 12/02/16) Allergies-Medications (Allergen,Severity, Reaction): Coded Allergies: Penicillins (Verified Allergy, Intermediate, HIVES, 12/27/16) Reported Meds & Prescriptions Reported Meds & Active Scripts Active Reported Xanax (Alprazolam) 1 Mg Tab 1 Mg PO Q8H PRN Aspir-81 (Aspirin) 81 Mg Tabdr 81 Mg PO DAILY Metoprolol Tartrate 50 Mg Tab 50 Mg PO BID Review of Systems Except as stated in HPI: all other systems reviewed are Neg Physical Exam Narrative GENERAL: Well-nourished, well-developed, nontoxic appearing white male in NAD. PSYCHIATRIC: No delusional thought processes. No hallucinations. Belligerent, argumentative, uncooperative. SKIN: Focused skin assessment warm/dry. HEAD: Normocephalic. EYES: No scleral icterus. No injection or drainage. NECK: Supple, trachea midline. No JVD. CARDIOVASCULAR: Regular rate and rhythm without murmurs, gallops, or rubs. RESPIRATORY: Breath sounds clear and equal bilaterally. No accessory muscle use. GASTROINTESTINAL: Abdomen soft, non-tender, nondistended. Active bowel sounds MUSCULOSKELETAL: No cyanosis, or edema. Moves easily from lying down to sitting up. BACK: No obvious deformity. Data Data Last Documented VS Vital Signs Date Time Temp Pulse Resp B/P (MAP) Pulse Ox O2 Delivery O2 Flow Rate FiO2 12/27/16 09:40 97.9 78 17 118/85 (96) 99 12/27/16 07:05 Room Air Orders Orders Complete Blood Count With Diff (12/26/16 17:51) Comprehensive Metabolic Panel (12/26/16 17:51) Urinalysis - C+S If Indicated (12/26/16 17:51) Drug Screen, Random Urine (12/26/16 17:51) Potassium Chloride (Kcl) (12/26/16 19:30) Psych Screen (12/27/16 00:56) Labs Laboratory Tests Test 12/26/16 18:09 12/26/16 21:55 White Blood Count 7.0 TH/MM3 Red Blood Count 3.95 MIL/MM3 Hemoglobin 12.0 GM/DL Hematocrit 35.9 % Mean Corpuscular Volume 91.0 FL Mean Corpuscular Hemoglobin 30.3 PG Mean Corpuscular Hemoglobin Concent 33.3 % Red Cell Distribution Width 14.9 % Platelet Count 199 TH/MM3 Mean Platelet Volume 8.2 FL Neutrophils (%) (Auto) 73.6 % Lymphocytes (%) (Auto) 16.7 % Monocytes (%) (Auto) 7.6 % Eosinophils (%) (Auto) 1.5 % Basophils (%) (Auto) 0.6 % Neutrophils # (Auto) 5.2 TH/MM3 Lymphocytes # (Auto) 1.2 TH/MM3 Monocytes # (Auto) 0.5 TH/MM3 Eosinophils # (Auto) 0.1 TH/MM3 Basophils # (Auto) 0.0 TH/MM3 CBC Comment DIFF FINAL Differential Comment Blood Urea Nitrogen 9 MG/DL Creatinine 0.79 MG/DL Random Glucose 106 MG/DL Total Protein 7.1 GM/DL Albumin 3.6 GM/DL Calcium Level 8.7 MG/DL Alkaline Phosphatase 65 U/L Aspartate Amino Transf (AST/SGOT) 63 U/L Alanine Aminotransferase (ALT/SGPT) 46 U/L Total Bilirubin 0.7 MG/DL Sodium Level 136 MEQ/L Potassium Level 2.7 MEQ/L Chloride Level 102 MEQ/L Carbon Dioxide Level 26.8 MEQ/L Anion Gap 7 MEQ/L Estimat Glomerular Filtration Rate 101 ML/MIN Urine Color YELLOW Urine Turbidity CLEAR Urine pH 5.5 Urine Specific [place] 1.018 Urine Protein TRACE mg/dL Urine Glucose (UA) NEG mg/dL Urine Ketones TRACE mg/dL Urine Occult Blood SMALL Urine Nitrite NEG Urine Bilirubin NEG Urine Urobilinogen 2.0 MG/DL Urine Leukocyte Esterase TRACE Urine RBC 25 /hpf Urine WBC 6 /hpf Urine Calcium Oxalate Crystals OCC /hpf Urine Amorphous Sediment RARE Urine Mucus FEW /lpf Microscopic Urinalysis Comment CULT NOT INDICATED Urine Opiates Screen NEG Urine Barbiturates Screen NEG Urine Amphetamines Screen POS Urine Benzodiazepines Screen NEG Urine Cocaine Screen NEG Urine Cannabinoids Screen NEG MDM Medical Decision Making Medical Screen Exam Complete: Yes Emergency Medical Condition: Yes Differential Diagnosis Adjustment disorder versus anxiety versus bipolar versus depression versus dementia versus electrolyte disorder versus malingering versus mood disorder versus ODD versus psychosis versus PTSD versus schizophrenia versus schizoaffective disorder versus substance-induced mood disorder versus other Narrative Course 56 YO M presents to the ED for evaluation of chest pain. He states "I don't feel good." He requests voluntary psychiatric evaluation. The patient is sleeping upon my evaluation. He wakes easily to voice. He becomes very agitated and is uncooperative with the history gathering or exam. Patient was initially seen in the ambulance call. He was eventually transferred to a medical bed. When he arrived he began to verbally abuse the staff and could be heard cursing loudly. Again I went to speak with the patient. He did begrudgingly allow me to examine him. He is refusing to give a urine sample. Myself as well as the nurse explained the need to evaluate the patient's urine as well as his ability to urinate. Security was ultimately called to the room. He denies suicidal or homicidal ideation. He repeatedly states that he is hungry and he can't sleep. The patient has been sleeping approximately 5 hours since his arrival in the emergency room. Review of the record reveals that the patient had a negative cardiac workup on 12/19/16. He has a history of cocaine and tobacco abuse. Labs show hypokalemia of 2.8. Potassium 3.4 at last visit. He was administered 40 mEq KCl by mouth. The patient did provide a urine sample which reveals small amount of blood and calcium oxalate crystals but no culture is indicated. Tox screen positive for amphetamines. He'll be signed out to Dr. Dominique Brady at the end of shift. He is medically cleared for psychiatric evaluation. Diagnosis Primary Impression: Chronic hypokalemia Martina Soto Dec 26, 2016 19:06
[2016-12-26 19:17] LABS: POTASSIUM 2.7 MEQ/L (3.5-5.1)
[2016-12-26] MEDS ORDERED: POTASSIUM CHLORIDE 20 MEQ CONTROLLED RELEASE TAB PO ONE (19:30)
[2016-12-26 21:58] VITALS: BP 135/86; PULSE 70; RESP 18; O2SAT 98
[2016-12-26 22:24] LABS: BLOOD, URINE SMALL (NEG); CALCIUM OXALATE CRYSTALS,URINE OCC /hpf; COMMENT (UR) CULT NOT INDICATED; CULTURE IF INDICATED CULT NOT INDICATED; GLUCOSE,URINE NEG (NEG); KETONE, URINE TRACE mg/dL (NEG); MUCUS URINE FEW /lpf (OCC); NITRITE,URINE NEG (NEG); PH, URINE 5.5 (5.0-8.5); URINE COLOR YELLOW (YELLW/STRAW)
[2016-12-27 02:00] VITALS: BP 124/74; PULSE 77; RESP 18; O2SAT 99
[2016-12-27 07:05] VITALS: BP 122/81; PULSE 76; RESP 16; TEMP 97.8; O2SAT 99
--- NOTE | 2016-12-27 09:27 | PD ---
Data Data Last Documented VS Vital Signs Date Time Temp Pulse Resp B/P (MAP) Pulse Ox O2 Delivery O2 Flow Rate FiO2 12/27/16 07:05 76 17 12/27/16 07:05 97.8 122/81 (95) 99 Room Air Orders Orders Complete Blood Count With Diff (12/26/16 17:51) Comprehensive Metabolic Panel (12/26/16 17:51) Urinalysis - C+S If Indicated (12/26/16 17:51) Drug Screen, Random Urine (12/26/16 17:51) Potassium Chloride (Kcl) (12/26/16 19:30) Psych Screen (12/27/16 00:56) Diet Regular Basic (12/27/16 Breakfast) Labs Laboratory Tests Test 12/26/16 18:09 12/26/16 21:55 White Blood Count 7.0 TH/MM3 Red Blood Count 3.95 MIL/MM3 Hemoglobin 12.0 GM/DL Hematocrit 35.9 % Mean Corpuscular Volume 91.0 FL Mean Corpuscular Hemoglobin 30.3 PG Mean Corpuscular Hemoglobin Concent 33.3 % Red Cell Distribution Width 14.9 % Platelet Count 199 TH/MM3 Mean Platelet Volume 8.2 FL Neutrophils (%) (Auto) 73.6 % Lymphocytes (%) (Auto) 16.7 % Monocytes (%) (Auto) 7.6 % Eosinophils (%) (Auto) 1.5 % Basophils (%) (Auto) 0.6 % Neutrophils # (Auto) 5.2 TH/MM3 Lymphocytes # (Auto) 1.2 TH/MM3 Monocytes # (Auto) 0.5 TH/MM3 Eosinophils # (Auto) 0.1 TH/MM3 Basophils # (Auto) 0.0 TH/MM3 CBC Comment DIFF FINAL Differential Comment Blood Urea Nitrogen 9 MG/DL Creatinine 0.79 MG/DL Random Glucose 106 MG/DL Total Protein 7.1 GM/DL Albumin 3.6 GM/DL Calcium Level 8.7 MG/DL Alkaline Phosphatase 65 U/L Aspartate Amino Transf (AST/SGOT) 63 U/L Alanine Aminotransferase (ALT/SGPT) 46 U/L Total Bilirubin 0.7 MG/DL Sodium Level 136 MEQ/L Potassium Level 2.7 MEQ/L Chloride Level 102 MEQ/L Carbon Dioxide Level 26.8 MEQ/L Anion Gap 7 MEQ/L Estimat Glomerular Filtration Rate 101 ML/MIN Urine Color YELLOW Urine Turbidity CLEAR Urine pH 5.5 Urine Specific [place] 1.018 Urine Protein TRACE mg/dL Urine Glucose (UA) NEG mg/dL Urine Ketones TRACE mg/dL Urine Occult Blood SMALL Urine Nitrite NEG Urine Bilirubin NEG Urine Urobilinogen 2.0 MG/DL Urine Leukocyte Esterase TRACE Urine RBC 25 /hpf Urine WBC 6 /hpf Urine Calcium Oxalate Crystals OCC /hpf Urine Amorphous Sediment RARE Urine Mucus FEW /lpf Microscopic Urinalysis Comment CULT NOT INDICATED Urine Opiates Screen NEG Urine Barbiturates Screen NEG Urine Amphetamines Screen POS Urine Benzodiazepines Screen NEG Urine Cocaine Screen NEG Urine Cannabinoids Screen NEG MDM Supervised Visit with [facility]: Yes Narrative Course The history, exam, and medical decision-making in the associated midlevel provider note were completed with my assistance. I reviewed and agree with the findings presented. I attest that I had a [id number] encounter with the patient on the same day, and personally performed and documented my assessment and findings in the medical record. *My assessment and Findings: This is a 56-year-old male who presents to the emergency department requesting to see psychiatry. He never articulated a reason to the physician assistant buyer or to the prior physician as to why he wanted to see psychiatry. He is not suicidal or homicidal. Throughout his visit he's been asking for food. My suspicion is he has secondary gain driving his visit. I don't see any reason that he would be a harm to himself or others. He was evaluated by the psychiatry screener who agrees. Patient will be discharged home. Diagnosis Primary Impression: Hypokalemia Patient Instructions: General Instructions Additional Instruction: Follow up with Chester Capps in regards to psychiatric or substance related issues at: [address] [place] [id number] Med/Other Pt SpecificInfo: No Change to Meds Disposition: 01 DISCHARGE HOME Condition: Stable Carine Ontiveros MD Dec 27, 2016 09:27
[2016-12-27 09:40] VITALS: BP 118/85; TEMP 97.9
== END 2016-12-27 09:39 | disposition home or self-care (01) ==
LOC: NEPC 17:11
DX: E87.6 Hypokalemia (principal); R07.9 Chest pain, unspecified; F41.9 Anxiety disorder, unspecified; I10 Essential (primary) hypertension; F17.200 Nicotine dependence, unspecified, uncomplicated; Z88.0 Allergy status to penicillin; Z79.82 Long term (current) use of aspirin; Z79.899 Other long term (current) drug therapy
CPT/HCPCS: 80053; 80307; 81001; 85025; 99284

== ENCOUNTER 2016-12-29 00:23 | Emergency (ER) | payer MEDICARE ==
[~2016-12-29] VITALS: Ht 182.9 cm; Wt 78.0 kg
[~2016-12-29 00:23] MED LIST changes: -HYDR-3533 PO; -PRED1 PO
[2016-12-29 00:25] VITALS: BP 112/76; PULSE 93; RESP 16; TEMP 98.5; O2SAT 96
--- NOTE | 2016-12-29 02:55 | PD ---
HPI Chief Complaint: Psychiatric Symptoms Time Seen by Provider: 02:49 Travel History International Travel<30 days: No Contact w/Intl Traveler<30days: No Traveled to known affect area: No History of Present Illness HPI 56-year-old male here voluntarily. When asked why he is here, the patient tells me that there are people trying to kill him. During my conversation with him, he repeatedly looked outside the exam room telling me that people are after him. According to the triage note he was complaining of chest pain. He denies any complaints of chest pain to me. He denies alcohol or illicit drug use. He denies suicidal or homicidal ideation. PFSH Past Medical History Anxiety: Yes Heart Rhythm Problems: No Cardiac Catheterization: No Cardiovascular Problems: Yes High Cholesterol: No Congestive Heart Failure: No Diabetes: No Diminished Hearing: No Hypertension: Yes Immunizations Current: No Past Surgical History Coronary Artery Bypass Graft: No Social History Alcohol Use: No Tobacco Use: Yes (-05/01 PPD) Substance Use: Yes (Patient stated that if he was to use it would be Cocaine. ) Allergies-Medications (Allergen,Severity, Reaction): Coded Allergies: Penicillins (Verified Allergy, Intermediate, HIVES, 12/29/16) Reported Meds & Prescriptions Reported Meds & Active Scripts Active Reported Xanax (Alprazolam) 1 Mg Tab 1 Mg PO Q8H PRN Aspir-81 (Aspirin) 81 Mg Tabdr 81 Mg PO DAILY Metoprolol Tartrate 50 Mg Tab 50 Mg PO BID Review of Systems Except as stated in HPI: all other systems reviewed are Neg Physical Exam Narrative GENERAL: Well-developed, well-nourished, appears paranoid SKIN: Focused skin assessment warm/dry. HEAD: Atraumatic. Normocephalic. EYES: Pupils equal and round. No scleral icterus. No injection or drainage. ENT: Mucous membranes pink and moist. NECK: Trachea midline. No JVD. No nuchal rigidity. CARDIOVASCULAR: Regular rate and rhythm. No murmur appreciated. RESPIRATORY: No accessory muscle use. Clear to auscultation. Breath sounds equal bilaterally. GASTROINTESTINAL: Abdomen soft, non-tender, nondistended. Hepatic and splenic margins not palpable. MUSCULOSKELETAL: No obvious deformities. No clubbing. No cyanosis. No edema. NEUROLOGICAL: Awake and alert. No obvious cranial nerve deficits. Motor grossly within normal limits. Normal speech. PSYCHIATRIC: Tangential thoughts, pressured speech, paranoid thoughts. Data Data Last Documented VS Vital Signs Date Time Temp Pulse Resp B/P (MAP) Pulse Ox O2 Delivery O2 Flow Rate FiO2 12/29/16 00:25 98.5 93 16 112/76 (88) 96 Room Air Orders Orders Complete Blood Count With Diff (12/29/16 02:53) Comprehensive Metabolic Panel (12/29/16 02:53) Electrocardiogram (12/29/16 02:53) Psych Screen (12/29/16 02:53) Drug Screen, Random Urine (12/29/16 02:53) Alcohol (Ethanol) (12/29/16 02:53) Salicylates (Aspirin) (12/29/16 02:53) Tylenol (Acetaminophen) (12/29/16 02:53) Ckmb (Isoenzyme) Profile (12/29/16 02:53) Troponin I (12/29/16 02:53) Lorazepam (Ativan) (12/29/16 03:45) Olanzapine (Zyprexa) (12/29/16 03:45) CKMB (12/29/16 03:18) CKMB% (12/29/16 03:18) Labs Laboratory Tests Test 12/29/16 03:18 White Blood Count 7.5 TH/MM3 Red Blood Count 4.17 MIL/MM3 Hemoglobin 12.7 GM/DL Hematocrit 38.6 % Mean Corpuscular Volume 92.5 FL Mean Corpuscular Hemoglobin 30.4 PG Mean Corpuscular Hemoglobin Concent 32.8 % Red Cell Distribution Width 14.7 % Platelet Count 225 TH/MM3 Mean Platelet Volume 8.0 FL Neutrophils (%) (Auto) 72.8 % Lymphocytes (%) (Auto) 16.8 % Monocytes (%) (Auto) 7.2 % Eosinophils (%) (Auto) 1.4 % Basophils (%) (Auto) 1.8 % Neutrophils # (Auto) 5.5 TH/MM3 Lymphocytes # (Auto) 1.3 TH/MM3 Monocytes # (Auto) 0.5 TH/MM3 Eosinophils # (Auto) 0.1 TH/MM3 Basophils # (Auto) 0.1 TH/MM3 CBC Comment DIFF FINAL Differential Comment Blood Urea Nitrogen 10 MG/DL Creatinine 0.86 MG/DL Random Glucose 88 MG/DL Total Protein 8.0 GM/DL Albumin 3.8 GM/DL Calcium Level 9.1 MG/DL Alkaline Phosphatase 70 U/L Aspartate Amino Transf (AST/SGOT) 38 U/L Alanine Aminotransferase (ALT/SGPT) 47 U/L Total Bilirubin 0.4 MG/DL Sodium Level 139 MEQ/L Potassium Level 3.3 MEQ/L Chloride Level 104 MEQ/L Carbon Dioxide Level 26.9 MEQ/L Anion Gap 8 MEQ/L Estimat Glomerular Filtration Rate 92 ML/MIN Total Creatine Kinase 442 U/L Troponin I LESS THAN 0.02 NG/ML Salicylates Level 3.6 MG/DL Acetaminophen Level LESS THAN 2.0 MCG/ML Ethyl Alcohol Level LESS THAN 3 MG/DL MDM Medical Decision Making Medical Screen Exam Complete: Yes Emergency Medical Condition: Yes Medical Record Reviewed: Yes Differential Diagnosis Acute psychosis, scottie, drug-induced mood disorder, metabolic abnormality Narrative Course Vital signs reviewed. CBC is unremarkable. CMP is remarkable for potassium 3.3, otherwise unremarkable. Tylenol, alcohol, and salicylate levels are negative. Patient was seen by psychiatric screener and agrees that the patient appears psychotic. Recommends oral Ativan and Zyprexa. Patient refused Zyprexa. Patient is medically cleared for psychiatric evaluation and disposition by them. Diagnosis Primary Impression: Acute psychosis Additional Impression: Paranoia Yoandy Peterson MD Dec 29, 2016 02:55
[2016-12-29 03:44] LABS: AUTOMATED NEUTROPHIL # 5.5 TH/MM3 (1.8-7.7); BASOPHIL # 0.1 TH/MM3 (0-0.2); BASOPHIL % 1.8 % (0.0-2.0); EOSINOPHIL # 0.1 TH/MM3 (0-0.4); EOSINOPHIL % 1.4 % (0.0-4.0); HEMATOCRIT 38.6 % (39.0-51.0); HEMO FLAGS DIFF FINAL; LYMPH % 16.8 % (9.0-44.0); LYMPHOCYTE # 1.3 TH/MM3 (1.0-4.8); MEAN CELL VOLUME 92.5 FL (80.0-100.0); MEAN CORPUSCULAR HEMOGLOBIN 30.4 PG (27.0-34.0); MEAN CORPUSCULAR HGB CONC 32.8 % (32.0-36.0); MONO % 7.2 % (0.0-8.0); NEUT % 72.8 % (16.0-70.0); PLATELET COUNT 225 TH/MM3 (150-450); RED BLOOD COUNT 4.17 MIL/MM3 (4.50-5.90); RED CELL DISTRIBUTION WIDTH 14.7 % (11.6-17.2); WHITE BLOOD COUNT 7.5 TH/MM3 (4.0-11.0)
[2016-12-29] MEDS ORDERED: OLANZapine 10 MG TAB PO ONE (03:45)
[2016-12-29] MEDS ORDERED: LORazepam 1 MG TAB PO ONE ×2 (03:45→06:00)
[2016-12-29 03:49] LABS: ANION GAP 8 MEQ/L (5-15); AST (GOT) 38 U/L (15-37); BICARBONATE 26.9 MEQ/L (21.0-32.0); BLOOD UREA NITROGEN 10 MG/DL (7-18); CHLORIDE 104 MEQ/L (98-107); GLOMERULAR FILTRATION RATE 92 ML/MIN (>89); POTASSIUM 3.3 MEQ/L (3.5-5.1); SODIUM (NA) 139 MEQ/L (136-145)
[2016-12-29 03:57] LABS: ALKALINE PHOSPHATASE 70 U/L (45-117); ALT (GPT) 47 U/L (12-78); CREATINE KINASE 442 U/L (39-308); TOTAL BILIRUBIN ADULT 0.4 MG/DL (0.2-1.0)
[2016-12-29 04:02] LABS: ALCOHOL LESS THAN 3 MG/DL (0-5)
[2016-12-29 04:03] LABS: ACETAMINOPHEN LESS THAN 2.0 MCG/ML (10.0-30.0)
[2016-12-29 04:15] LABS: CKMB 11.4 NG/ML (0.5-3.6)
[2016-12-29 13:26] VITALS: BP 133/81; PULSE 71; RESP 18; O2SAT 97
--- NOTE | 2016-12-29 17:06 | PD ---
Physical Exam Date Seen by Provider: Dec 29, 2016 Time Seen by Provider: 17:04 Narrative Patient is cleared by psychiatric staff for discharge. Patient is medically cleared for discharge. He is felt to be medically stable for discharge and follow-up as per psychiatric discharge instructions. Data Data Last Documented VS Vital Signs Date Time Temp Pulse Resp B/P (MAP) Pulse Ox O2 Delivery O2 Flow Rate FiO2 12/29/16 13:26 71 18 133/81 (98) 97 Room Air 12/29/16 00:25 98.5 Orders Orders Complete Blood Count With Diff (12/29/16 02:53) Comprehensive Metabolic Panel (12/29/16 02:53) Psych Screen (12/29/16 02:53) Drug Screen, Random Urine (12/29/16 02:53) Alcohol (Ethanol) (12/29/16 02:53) Salicylates (Aspirin) (12/29/16 02:53) Tylenol (Acetaminophen) (12/29/16 02:53) Ckmb (Isoenzyme) Profile (12/29/16 02:53) Troponin I (12/29/16 02:53) Lorazepam (Ativan) (12/29/16 03:45) Olanzapine (Zyprexa) (12/29/16 03:45) CKMB (12/29/16 03:18) CKMB% (12/29/16 03:18) Lorazepam (Ativan) (12/29/16 06:00) Diet Regular Basic (12/29/16 Breakfast) Diet Regular Basic (12/29/16 Dinner) Labs Laboratory Tests Test 12/29/16 03:18 White Blood Count 7.5 TH/MM3 Red Blood Count 4.17 MIL/MM3 Hemoglobin 12.7 GM/DL Hematocrit 38.6 % Mean Corpuscular Volume 92.5 FL Mean Corpuscular Hemoglobin 30.4 PG Mean Corpuscular Hemoglobin Concent 32.8 % Red Cell Distribution Width 14.7 % Platelet Count 225 TH/MM3 Mean Platelet Volume 8.0 FL Neutrophils (%) (Auto) 72.8 % Lymphocytes (%) (Auto) 16.8 % Monocytes (%) (Auto) 7.2 % Eosinophils (%) (Auto) 1.4 % Basophils (%) (Auto) 1.8 % Neutrophils # (Auto) 5.5 TH/MM3 Lymphocytes # (Auto) 1.3 TH/MM3 Monocytes # (Auto) 0.5 TH/MM3 Eosinophils # (Auto) 0.1 TH/MM3 Basophils # (Auto) 0.1 TH/MM3 CBC Comment DIFF FINAL Differential Comment Blood Urea Nitrogen 10 MG/DL Creatinine 0.86 MG/DL Random Glucose 88 MG/DL Total Protein 8.0 GM/DL Albumin 3.8 GM/DL Calcium Level 9.1 MG/DL Alkaline Phosphatase 70 U/L Aspartate Amino Transf (AST/SGOT) 38 U/L Alanine Aminotransferase (ALT/SGPT) 47 U/L Total Bilirubin 0.4 MG/DL Sodium Level 139 MEQ/L Potassium Level 3.3 MEQ/L Chloride Level 104 MEQ/L Carbon Dioxide Level 26.9 MEQ/L Anion Gap 8 MEQ/L Estimat Glomerular Filtration Rate 92 ML/MIN Total Creatine Kinase 442 U/L Creatine Kinase MB 11.4 NG/ML Creatine Kinase MB % 2.6 % Troponin I LESS THAN 0.02 NG/ML Salicylates Level 3.6 MG/DL Acetaminophen Level LESS THAN 2.0 MCG/ML Ethyl Alcohol Level LESS THAN 3 MG/DL MDM Medical Record Reviewed: Yes Supervised Visit with [facility]: Yes Narrative Course Patient is cleared by psychiatric staff for discharge. Patient is medically cleared for discharge. He is felt to be medically stable for discharge and follow-up as per psychiatric discharge instructions. Diagnosis Primary Impression: Acute psychosis Additional Impression: Paranoia Patient Instructions: General Instructions Departure Forms: Tests/Procedures Additional Instruction: Patient is cleared by psychiatric staff for discharge. Patient is medically cleared for discharge. He is felt to be medically stable for discharge and follow-up as per psychiatric discharge instructions. Disposition: 01 DISCHARGE HOME Condition: Stable Wilmer Domingo Dec 29, 2016 17:06
[2016-12-29 17:07] VITALS: BP 131/80
--- NOTE | 2016-12-29 17:13 | PD ---
History of Present Illness Chief Complaint: Psychiatric Symptoms Time Seen by Provider: 16:15 Travel History International Travel<30 Days: No Contact w/Intl Traveler<30days: No Known affected area: No Legal Status Legal Status: Voluntary History of Present Illness: History of Present Illness HPI 56-year-old male with no reported psychiatric history and history of substance use who presents to ED voluntarily reporting that people were after him trying to kill him. As per documentation he appeared to be paranoid . According to the triage note he was complaining of chest pain. He denies any complaints of chest pain to me. He denies alcohol or illicit drug use. He denies suicidal or homicidal ideation. The patient was transferred to [facility] pod for further evaluation and observation. He was medicated with Ativan but he refused Zyprexa. Patient slept for most of the time in [facility] pod . Got up to use bathroom and to eat. EMR reviewed. he presented to ED on december 26 complaining of chest pain and requesting a psychiatric evaluation. he was positive for amphetamines at the time although he denies using such. Seen with CHRIS Vilchis. This afternoon he is asleep but awakens with verbal prompting. he is calm, appears tired. Speech is of low tone but clear. He states he is in the hospital for chest pain. he denies any hallucinations, no delusions and no paranoia. he refuses to answer questions regarding substance use. He denies any suicidal or homicidal ideation. ' I would only hurt someone who tries to hurt me". When asked if he would like o receive treatment fro substance use he sates " I don't want help". He then states " will I be able to stay another night? he denied any previous psychiatric treatment. [facility] Past Medical History Anxiety: Yes Heart Rhythm Problems: No Cardiac Catheterization: No Cardiovascular Problems: Yes High Cholesterol: No Congestive Heart Failure: No Diabetes: No Diminished Hearing: No Hypertension: Yes Immunizations Current: No Past Surgical History Coronary Artery Bypass Graft: No Psychiatric History Psychiatric History Hx Psychiatric Treatment: Denies History of Inpatient Treatment: No Guns or firearms in home: No Social History [place]. moved here 1 month ago . Retired physiotherapy aide Hx Alcohol Use: No Hx Tobacco Use: Yes (1-05/01 PPD) Hx Substance Use: Yes Substance Use Type: Amphetamines-Stimulants, Cocaine Hx of Substance Use Treatment: No Family Psychiatric History Negative Allergies-Medications (Allergen,Severity, Reaction): Coded Allergies: Penicillins (Verified Allergy, Intermediate, HIVES, 12/29/16) Reported Meds & Prescriptions Reported Meds & Active Scripts Active Reported Xanax (Alprazolam) 1 Mg Tab 1 Mg PO Q8H PRN Aspir-81 (Aspirin) 81 Mg Tabdr 81 Mg PO DAILY Metoprolol Tartrate 50 Mg Tab 50 Mg PO BID Review of Systems Cardiovascular: COMPLAINS OF: Chest pain Exam Alert: Yes [place]: Person (ox4) Mood: Calm Affect: Restricted Speech: Clear, Logical Eye Contact: Normal Memory Intact: Comment (unwilling to cooperate ) Hallucinations: Other (Negative) Delusions: No Suicidal: Ideation (deneis any) Homicidal: Ideation (deneis any) Insight/Judgement Poor. Not impaired. MDM Medical Decision Making Medical Record Reviewed: Yes Assessment/Plan 56-year-old male with no reported psychiatric history and history of substance use who presents to ED voluntarily reporting that people were after him trying to kill him. As per documentation he appeared to be paranoid . Patient was monitored in J pod. He slept during most of hi stay. He did not verbalize any suicidal or homicidal ideation, intent or plan. he did not present any psychosis or scottie. He refused to consider any further treatment for substance use. He requested to stay another night in [facility] pod. I suspect the patients paranoia is related to substance use although he refused to discuss this with me. previous toxicology was positive for amphetamine. I also suspect he may be malingering his symptoms in order to obtain longterm. Cleared from psychiatry for discharged from Ed. Orders Orders Complete Blood Count With Diff (12/29/16 02:53) Comprehensive Metabolic Panel (12/29/16 02:53) Psych Screen (12/29/16 02:53) Drug Screen, Random Urine (12/29/16 02:53) Alcohol (Ethanol) (12/29/16 02:53) Salicylates (Aspirin) (12/29/16 02:53) Tylenol (Acetaminophen) (12/29/16 02:53) Ckmb (Isoenzyme) Profile (12/29/16 02:53) Troponin I (12/29/16 02:53) Lorazepam (Ativan) (12/29/16 03:45) Olanzapine (Zyprexa) (12/29/16 03:45) CKMB (12/29/16 03:18) CKMB% (12/29/16 03:18) Lorazepam (Ativan) (12/29/16 06:00) Diet Regular Basic (12/29/16 Breakfast) Diet Regular Basic (12/29/16 Dinner) Results Vital Signs Date Time Temp Pulse Resp B/P (MAP) Pulse Ox O2 Delivery O2 Flow Rate FiO2 12/29/16 17:07 86 18 131/80 (97) 99 12/29/16 13:26 71 18 133/81 (98) 97 Room Air 12/29/16 00:25 98.5 93 16 112/76 (88) 96 Room Air Laboratory Tests Test 12/29/16 03:18 White Blood Count 7.5 Red Blood Count 4.17 Hemoglobin 12.7 Hematocrit 38.6 Mean Corpuscular Volume 92.5 Mean Corpuscular Hemoglobin 30.4 Mean Corpuscular Hemoglobin Concent 32.8 Red Cell Distribution Width 14.7 Platelet Count 225 Mean Platelet Volume 8.0 Neutrophils (%) (Auto) 72.8 Lymphocytes (%) (Auto) 16.8 Monocytes (%) (Auto) 7.2 Eosinophils (%) (Auto) 1.4 Basophils (%) (Auto) 1.8 Neutrophils # (Auto) 5.5 Lymphocytes # (Auto) 1.3 Monocytes # (Auto) 0.5 Eosinophils # (Auto) 0.1 Basophils # (Auto) 0.1 CBC Comment DIFF FINAL Differential Comment Blood Urea Nitrogen 10 Creatinine 0.86 Random Glucose 88 Total Protein 8.0 Albumin 3.8 Calcium Level 9.1 Alkaline Phosphatase 70 Aspartate Amino Transf (AST/SGOT) 38 Alanine Aminotransferase (ALT/SGPT) 47 Total Bilirubin 0.4 Sodium Level 139 Potassium Level 3.3 Chloride Level 104 Carbon Dioxide Level 26.9 Anion Gap 8 Estimat Glomerular Filtration Rate 92 Total Creatine Kinase 442 Creatine Kinase MB 11.4 Creatine Kinase MB % 2.6 Troponin I LESS THAN 0.02 Salicylates Level 3.6 Acetaminophen Level LESS THAN 2.0 Ethyl Alcohol Level LESS THAN 3 Diagnosis Primary Impression: Substance or medication-induced psychotic disorder Ruled Out: Acute psychosis, Paranoia Psychiatrically Cleared: Yes Departure Forms: Tests/Procedures Patient Instructions: General Instructions Additional Instructions: Patient is cleared by psychiatric staff for discharge. Patient is medically cleared for discharge. He is felt to be medically stable for discharge and follow-up as per psychiatric discharge instructions. FOLLOW-UP WITH PCP NEEDED RETURN TO ED FOR WORSENING PROBLEMS Disposition: 01 DISCHARGE HOME Condition: Stable Na Lopez Dec 29, 2016 17:13
== END 2016-12-29 17:14 | disposition home or self-care (01) ==
LOC: NEPE 00:23 → NEPJ 17:14
DX: F23 Brief psychotic disorder (principal); F22 Delusional disorders; I10 Essential (primary) hypertension; F17.200 Nicotine dependence, unspecified, uncomplicated; Z86.59 Personal history of other mental and behavioral disorders; Z86.79 Personal history of other diseases of the circulatory system; Z79.899 Other long term (current) drug therapy
CPT/HCPCS: 80053; 80307; 82550; 82552; 84484; 85025; 99284